=== PATIENT | male | born 1940 | race Caucasian/White ===

== ENCOUNTER 2017-05-04 14:31 | Inpatient (IN) | payer MEDICARE, BC ==
[~2017-05-04] VITALS: Ht 172.7 cm; Wt 82.2 kg
[~2017-05-04 14:31] MED LIST: AMLO5TAB4 PO; ASPI-496 PO; ATOR10TA PO; AZIT500T5 PO; CEFD300C37 PO; CHOL20002 PO; DARI7.5T3 PO; GUAI-103 PO; INSU100V13 SQ-INSULIN; LEVO500T47 PO; LISI-167 PO; METO25TA35 PO; OMEP40CA6 PO
[2017-05-04] MEDS ORDERED: SODIUM CHLORIDE 0.9% 1,000 ML IV ONE (14:35)
[2017-05-04] MEDS ORDERED: SODIUM CHLORIDE FLUSH 10ML SYR IVF ONE (15:00)
[2017-05-04] MEDS ORDERED: ACETAMINOPHEN 500 MG TABLET PO ONE (15:00)
[2017-05-04 15:20] LABS: RAPID INFLUENZA A Negative (Negative); RAPID INFLUENZA B Negative (Negative)
[2017-05-04] MEDS ORDERED: tragenta PO (15:33)
[2017-05-04] MEDS ORDERED: GLIP5TAB10 PO (15:33)
[2017-05-04] MEDS ORDERED: potassium PO (15:33)
[2017-05-04] MEDS ORDERED: VIT1TABL34 PO (15:33)
[2017-05-04 15:41] LABS: HEMATOCRIT 34.7 % (39.2-51.8); HEMOGLOBIN 11.8 g/dL (13.7-18.0); WHITE BLOOD COUNT 19.1 x10^3/uL (3.4-10)
[2017-05-04 15:51] LABS: BLOOD UREA NITROGEN 28 mg/dL (7-18)
[2017-05-04] MEDS ORDERED: AZITHROMYCIN 500 MG in SODIUM CHLORIDE 0.9% 250 ML IV ONE (16:00)
[2017-05-04] MEDS ORDERED: SODIUM CHLORIDE 0.9%, 500ML IVBOLUS ONE (16:00)
[2017-05-04] MEDS ORDERED: CEFTRIAXONE PMX 1GM/50ML 50 ML IV ONE (16:00)
[2017-05-04] MEDS ORDERED: CEFTRIAXONE PMX 1GM/50ML 50 ML ONE (16:13)
[2017-05-04] MEDS ORDERED: SODIUM CHLORIDE 0.9% 1,000 ML IV SCH (16:39)
[2017-05-04] MEDS: AZITHROMYCIN 500 MG in SODIUM CHLORIDE 0.9% 250 ML IV SCH (16:56)
[2017-05-04] MEDS: CEFTRIAXONE PMX 2GM/50ML 50 ML IV SCH (16:56)
[2017-05-04] MEDS ORDERED: ENALAPRILAT 1.25 MG/ML, 2ML IVPush PRN (17:00)
[2017-05-04] MEDS ORDERED: ONDANSETRON 2MG/ML, 2ML IVPush PRN (17:00)
[2017-05-04] MEDS ORDERED: DOCUSATE 100 MG CAPSULE PO PRN (17:00)
[2017-05-04] MEDS ORDERED: ACETAMINOPHEN 325 MG TABLET PO PRN (17:00)
[2017-05-04] MEDS ORDERED: ONDANSETRON ODT 4 MG PO PRN (17:00)
[2017-05-04] MEDS ORDERED: GLUCAGON 1 MG IM PRN (17:30)
[2017-05-04] MEDS ORDERED: DEXTROSE 4 GM TAB.CHEW PO PRN (17:30)
[2017-05-04] MEDS ORDERED: DEXTROSE 50%, 50ML SYRINGE IVPush PRN (17:30)
[2017-05-04] MEDS ORDERED: METOPROLOL TARTRATE 25 MG TABLET PO SCH (18:00)
[2017-05-04 18:08] VITALS: BP 129/62
[2017-05-04] MEDS: POTASSIUM CHLORIDE 20 MEQ TAB.ER.PRT PO SCH (18:28)
[2017-05-04] MEDS ORDERED: ENOXAPARIN 40 MG/0.4 ML SQ SCH (18:30)
[2017-05-04 19:09] VITALS: BP 112/67
[2017-05-04] MEDS: LACTULOSE 10 GM/15 ML UDC PO SCH (21:00)
[2017-05-04] MEDS: INSULIN ASPART 100 UNITS/ML, PEN SQ-INSULIN SCH (21:50)
[2017-05-04] MEDS: AMLODIPINE 5 MG TABLET PO SCH (21:50)
[2017-05-04] MEDS: ATORVASTATIN 20 MG TABLET PO SCH (21:50)
[2017-05-04] MEDS: SODIUM CHLORIDE FLUSH 10ML SYR IVF SCH (21:51)
[2017-05-04] MEDS: SODIUM CHLORIDE 0.9% 1,000 ML IV SCH (23:59)
[2017-05-05 01:40] VITALS: BP 122/65
[2017-05-05 05:52] LABS: HEMATOCRIT 31.5 % (39.2-51.8); HEMOGLOBIN 10.4 g/dL (13.7-18.0); WHITE BLOOD COUNT 13.9 x10^3/uL (3.4-10)
[2017-05-05 06:04] LABS: ASPARTATE AMINO TRANSFERASE 20 U/L (15-37); BLOOD UREA NITROGEN 24 mg/dL (7-18)
[2017-05-05] MEDS: INSULIN ASPART 100 UNITS/ML, PEN SQ-INSULIN SCH ×4 (07:00→21:00)
[2017-05-05 07:37] VITALS: BP 130/74
[2017-05-05] MEDS: POTASSIUM CHLORIDE 20 MEQ TAB.ER.PRT PO SCH (08:37)
[2017-05-05] MEDS: AMLODIPINE 5 MG TABLET PO SCH ×2 (08:37→21:26)
[2017-05-05] MEDS: SENNA/DOCUSATE TABLET PO SCH (08:38)
[2017-05-05] MEDS: ASPIRIN 81 MG TABLET EC PO SCH (08:38)
[2017-05-05] MEDS: METOPROLOL TARTRATE 25 MG TABLET PO SCH ×2 (08:38→21:25)
[2017-05-05] MEDS: LACTULOSE 10 GM/15 ML UDC PO SCH ×2 (08:38→21:00)
[2017-05-05] MEDS: SODIUM CHLORIDE FLUSH 10ML SYR IVF SCH ×2 (08:39→21:26)
[2017-05-05] MEDS: SODIUM CHLORIDE 0.9% 1,000 ML IV SCH ×3 (08:39→23:00)
[2017-05-05] MEDS ORDERED: ERYTHROMYCIN OPHTH 0.5%, 1GM RIGHTEYE SCH (09:00)
[2017-05-05] MEDS ORDERED: POTASSIUM CHLORIDE 20 MEQ TAB.ER.PRT PO ONE (12:00)
[2017-05-05 15:33] VITALS: BP 128/79
[2017-05-05] MEDS ORDERED: SODIUM CHLORIDE 0.9% 1,000 ML IV SCH (16:39)
[2017-05-05] MEDS: CEFTRIAXONE PMX 2GM/50ML 50 ML IV SCH (16:53)
[2017-05-05] MEDS: AZITHROMYCIN 500 MG in SODIUM CHLORIDE 0.9% 250 ML IV SCH (18:09)
[2017-05-05] MEDS ORDERED: ENOXAPARIN 30 MG/0.3 ML SQ SCH (18:30)
[2017-05-05 20:24] VITALS: BP 133/79
[2017-05-05] MEDS: ERYTHROMYCIN OPHTH 0.5%, 1GM RIGHTEYE SCH (21:00)
[2017-05-05] MEDS: ATORVASTATIN 20 MG TABLET PO SCH (21:25)
[2017-05-06 04:12] VITALS: BP 127/71
[2017-05-06 05:38] LABS: HEMATOCRIT 30.3 % (39.2-51.8); HEMOGLOBIN 10.3 g/dL (13.7-18.0); WHITE BLOOD COUNT 12.9 x10^3/uL (3.4-10)
[2017-05-06] MEDS: SODIUM CHLORIDE 0.9% 1,000 ML IV SCH ×2 (05:40→12:20)
[2017-05-06 06:04] LABS: BLOOD UREA NITROGEN 23 mg/dL (7-18)
[2017-05-06] MEDS: ERYTHROMYCIN OPHTH 0.5%, 1GM RIGHTEYE SCH ×2 (06:06→11:00)
[2017-05-06 06:07] LABS: ASPARTATE AMINO TRANSFERASE 42 U/L (15-37)
[2017-05-06] MEDS: INSULIN ASPART 100 UNITS/ML, PEN SQ-INSULIN SCH ×2 (07:00→12:55)
[2017-05-06 07:14] VITALS: BP 146/81
[2017-05-06] MEDS ORDERED: POTASSIUM PHOSPHATE 44 MEQ in SODIUM CHLORIDE 0.9% 500 ML IV ONE (07:30)
[2017-05-06] MEDS ORDERED: MAGNESIUM SULFATE PMX 2GM/50ML 50 ML IV ONE (07:30)
[2017-05-06] MEDS: SENNA/DOCUSATE TABLET PO SCH (08:13)
[2017-05-06] MEDS: METOPROLOL TARTRATE 25 MG TABLET PO SCH (08:18)
[2017-05-06] MEDS: ASPIRIN 81 MG TABLET EC PO SCH (08:18)
[2017-05-06] MEDS: LACTULOSE 10 GM/15 ML UDC PO SCH (08:18)
[2017-05-06] MEDS: AMLODIPINE 5 MG TABLET PO SCH (08:20)
[2017-05-06] MEDS: SODIUM CHLORIDE FLUSH 10ML SYR IVF SCH (09:00)
[2017-05-06] MEDS ORDERED: ERYT1OIN5 RIGHTEYE (14:24)
[2017-05-06] MEDS ORDERED: CEFD300C37 PO (14:24)
[2017-05-06] MEDS ORDERED: ENOXAPARIN 40 MG/0.4 ML SQ SCH (18:00)
== END 2017-05-06 15:33 | disposition home or self-care (01) | DRG 871 ==
LOC: ED 15:50 → EDIP 15:51 → ED 16:49 → 4WST 17:54 → DCLOUNGE 05-06 15:22
PROVIDERS: ADMIT Family Medicine; ATTEND Hospitalist
DX: A41.9 Sepsis, unspecified organism (principal); E43 Unspecified severe protein-calorie malnutrition; N17.9 Acute kidney failure, unspecified; J18.9 Pneumonia, unspecified organism; E11.22 Type 2 diabetes mellitus with diabetic chronic kidney disease; E87.5 Hyperkalemia; N18.3 Chronic kidney disease, stage 3 (moderate); E87.1 Hypo-osmolality and hyponatremia; N25.81 Secondary hyperparathyroidism of renal origin; E87.6 Hypokalemia; I12.9 Hypertensive chronic kidney disease with stage 1 through stage 4 chronic kidney disease, or unspecified chronic kidney disease; E78.00 Pure hypercholesterolemia, unspecified; F17.200 Nicotine dependence, unspecified, uncomplicated; R65.20 Severe sepsis without septic shock; H10.9 Unspecified conjunctivitis; Z92.21 Personal history of antineoplastic chemotherapy; Z85.50 Personal history of malignant neoplasm of unspecified urinary tract organ; Z68.27 Body mass index [BMI] 27.0-27.9, adult; Z82.49 Family history of ischemic heart disease and other diseases of the circulatory system; Z85.6 Personal history of leukemia; Z85.810 Personal history of malignant neoplasm of tongue; Z92.3 Personal history of irradiation; Z90.79 Acquired absence of other genital organ(s); Z86.73 Personal history of transient ischemic attack (TIA), and cerebral infarction without residual deficits; Z87.01 Personal history of pneumonia (recurrent)
CPT/HCPCS: 36415; 71010; 71020; 80048; 80053; 82040; 82962; 83605; 83735; 84100; 84145; 85025; 87040; 87070; 87205; 87400; 93005; 96361; 96365; 96366; 96368; J0456; J0696; J1650; J1815; J3475; J7030; J7040; J7050

== ENCOUNTER 2019-12-11 12:12 | Outpatient (CLI) | payer MEDICARE, BC ==
[~2019-12-11 12:12] MED LIST changes: +ACYC-114 PO; +ATOR40TA78 PO; +AZIT500T10 PO; -AZIT500T5 PO; +BRIM5DRO3 RIGHTEYE; +CLOP75TA52 PO; +DORZ10DR7 EACHEYE; +ERYT1OIN5 RIGHTEYE; +GANC5GEL EACHEYE; +GLIP5TAB10 PO; +MOXI3DRO11 EACHEYE; +OMEP40CA42 PO; -OMEP40CA6 PO; +PRED5DRO20 EACHEYE; +REGADENOSON 0.4 MG/5 ML SYRINGE ONE; +VIT1TABL34 PO; +potassium PO; +tragenta PO
== END 2019-12-11 23:59 | disposition home or self-care (01) ==
LOC: CFH 12:12
PROVIDERS: ATTEND Physician Assistant Medical
DX: I21.29 ST elevation (STEMI) myocardial infarction involving other sites (principal); I25.89 Other forms of chronic ischemic heart disease
CPT/HCPCS: 78452; 93017; A9502; J2785